=== PATIENT | female | born 1950 | race Caucasian/White ===

== ENCOUNTER 2020-10-02 15:49 | Emergency (ER) | payer OTHER, BC ==
[~2020-10-02] VITALS: Ht 162.6 cm; Wt 56.7 kg
[2020-10-02 21:04] VITALS: BP 116/68
[2020-10-02] MEDS ORDERED: NORVASC5 MG PO (21:44)
[2020-10-02] MEDS ORDERED: KEPPRA 500 MG500 MG PO (21:45)
[2020-10-02] MEDS ORDERED: LEVO-T100 MCG PO (21:45)
== END 2020-10-02 21:06 ==
LOC: ER 15:49
DX: R41.82 Altered mental status, unspecified (principal); Z79.899 Other long term (current) drug therapy; Z88.5 Allergy status to narcotic agent; Z20.828 Contact with and (suspected) exposure to other viral communicable diseases

== ENCOUNTER 2020-10-02 21:26 | Inpatient (IN) | payer OTHER, BC ==
[~2020-10-02] VITALS: Ht 165.1 cm; Wt 64.0 kg
[2020-10-02 21:30] VITALS: BP 140/80
[2020-10-02] MEDS ORDERED: NORVASC5 MG PO (21:44)
[2020-10-02] MEDS ORDERED: KEPPRA 500 MG500 MG PO (21:45)
[2020-10-02] MEDS ORDERED: LEVO-T100 MCG PO (21:45)
--- NOTE | 2020-10-03 00:54 | NUR ---
Patient admitted from [facility] where patient had been admitted inpatient from 09/25/20 to 10/02/20 due to "acute brain disorder". 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 While inpatient, patient had multiple tests and labs completed. Background history: Patient was living in [place] independently until approximately 3 weeks ago. Patient was playing golf, tennis, cards and completing all ADLs independently. Patient friends called son, Wicho ANT Churchill to report that patient was having increased confusion. Son, Wicho, brought patient to [facility] where he resides. Wicho took patient to [facility] due to generalized weakness and altered mental status progression. Patient has history of HTN, Hypothyroid and DJD. No history of dementia, depression or any psychiatric diagnoses. Wicho reports that patient has had "at least" a 40 pound weight loss over the last 1-2 months. Reports that she has poor intake. Foods that he was able to get her to eat over the last week have included scrambled eggs, blueberry muffin, jello, [place] juice and chocolate Ensure. Dietary consult placed as well as supplements TID. Patient had episodes of combative and impulsive behaviors while at [facility] and in [facility] ED. Patient was treated with Zyprexa 5mg IM while in ED which has been effective. No known falls over the last 6 months. Gait unsteady, poor balance observed. Patient also having expressive aphasia, speech mumbled and soft. Answers to name being called rarely. Disoriented x4. No s/s of pain or discomfort observed. Patient incontinent of bladder upon arrival to unit. Checked and changed q2 hours as well as turn q2. Fluids encouraged with each encounter. Patient becomes agitated and has declined fluids since arrival to unit. Appears that palliative care assessed patient while at [facility] and that "family is on board" to pursue hospice care upon d/c with private caregivers in son's home. Patient high fall risk, fall risk precautions in place. Son reports that patient tends to get "fidgety" when needing to use the bathroom and will occasionally use the bathroom if assisted there. Son also reports that patient has "tics" in her sleep. Small involuntary movements observed to bilateral upper extremities thus far this shift. Bruising present to left hand due to old IV placement. Patient impulsive and resistive to cares upon arrival. Gown changed, linens changed. Required max assist x2 for ADLs. Patient DNR, form in chart with DPOA signature as well as DPOA paperwork. Allergy: Codeine. Patient having periods of restlessness in her sleep but otherwise appears to be resting.
[2020-10-03 08:45] VITALS: BP 119/60
--- NOTE | 2020-10-03 19:21 | NUR ---
Alert and orientated X name only. At times tracks and follows, smiles and is able to make short coherent statements. At other times she is somulent. Did have several periods of rhythmic jerking of R arm, Dr. Molina aware, no orders. Requires feeding. Diet changed to mechanical altered chopped d/t at times slow to chew/swallow. Did take approximately 1500 ml in fluid today. Breath sounds clear. Reg HR auscultated. Color pink with brisk capillary refill and palpable peripheral pulses. Several spots of yellow urine on diaper X 2 approximately 5ml each, Dr. Molina notified, no orders. Wrapped hand through spokes of wheelchair early in day. Placed in gerichair. Bears wt most of time but requires 1-2 person transfer. Currently in bed without s/o distress.
[2020-10-03 19:45] VITALS: BP 132/60
--- NOTE | 2020-10-04 00:09 | NUR ---
PT CARE ASSUMED AT 1900. PT RESTING IN BED WITH EYES CLOSED. NO DISTRESS OBSERVED. MED PASS TIME PT IS STILL SLEEPY BUT EASILY AROUSABLE. PT TOOK MEDS WITH NO DIFFICULTY AND READJUSTED IN BED. PT CONFUSED AND DISORIENTED AND UNABLE TO STATE IF SHE IS IN PAIN. LUNGS CTA LALITO. HEART RHYTHM REGULAR WITH <2 CAP REFILL. BOWEL SOUNDS PRESENT OVER SOFT ROUNDED ABDOMEN. SKIN CDI. WILL CTM.
--- NOTE | 2020-10-04 01:38 | NUR ---
PT TOILETED BUT UNABLE TO VOID. NO SIGNS OF DISTRESS NOTED. BLADDERR SCANNED WITH A READING OF 324. AUT[employer] CENTER MANAGER AIRPORT CONTROL OPERATOR NOTIFIED. PT TO BE STRAIGHT CATHED IF >400ML. WILL CTM AND ACT ACCORDINGLY.
[2020-10-04 07:38] VITALS: BP 98/62
[2020-10-04 10:21] VITALS: BP 98/62
--- NOTE | 2020-10-04 12:54 | NUR ---
ACCEPTED CARE OF PATIENT FROM 7PM SHIFT. PT WITH MAX ASSIST OF 2 TO G/C TO EAT BREAKFAST. TRIES TO FEED SELF. TAKES HER MEDS CRUSHED IN APPLESAUCE WELL. NO TREMORS NOTED AT THIS TIME. RECIEVED ZYPREXA IM FOR INCREASED RESTLESSNESS. sON JUDSON CALLS TO CHECK ON PT. ENC TO CALL BACK TO CHECK ON HER.
--- NOTE | 2020-10-04 14:43 | NUR ---
QUANG contacted pts son Wicho (DPOA) to complete pt assessment. Wicho stated he spoke with hospital staff at [facility] who recommended he should look for pallitive care or hospice. Wicho reported if this is the recommendation he would like to look for a place near or in [place].
--- NOTE | 2020-10-04 16:32 | NUR ---
1600-Pt bladder distended and upon bladder scan,shows 500cc fluid in bladder. Pt is straight cath with a return of 600cc dark janiya concentrated urine. pt left in bed and within less 5minutes appears to be resting well.Dr Aviles here and discussed situation. she states she will address it.
[2020-10-04 18:56] VITALS: BP 106/67
--- NOTE | 2020-10-05 01:24 | NUR ---
Assumed care on 10/04/20 @ 19:15, seated in a moustapha chair in the day room, transferred x3 to bed and zhou in serted with sterile technique, 300cc output upon insertion. Procedure explained to patient, who had to have both hands held by staff during procedure, tolerated procedure well. Calmed after with reassurance, took meds crushed in applesauce cooperatively, with thin water. Trembling and head turning to the right and eyes turning to the right with jerkiness. Extremities trembling and jerking. Calm, however still awake @ 2200, second dose of Trazadone 50 provided along with Olanzapine 2.5mg for agitation, also Tylenol 650mg for general pain of 5/10, upon folllow up noted to be sleeping. Bed in low position, bed alarm set, zhou draining clear yellow urine to gravity. Will continue to monitor as per unit protocol for safety and comfort.
[2020-10-05 02:00] VITALS: BP 106/67
--- NOTE | 2020-10-05 06:36 | NUR ---
Slept 6.4 hours overnight.
[2020-10-05 08:00] VITALS: BP 163/126
--- NOTE | 2020-10-05 11:29 | NUR ---
QUANG and Dr. Price spoke to Wicho about pt who said he would like pt to go to a NH facility in [place] with hospice care. He wants her screened for hospice house placement with hospice. QUANG sent him a NH listing via Medicare.gov as a plan B in case she does not qualify for hospice house. QUANG team will continue to follow pt during her stay on this unit.
[2020-10-05 12:16] LABS: CALCIUM 10.1 mg/dL (8.5-10.1); CREATININE 1.4 mg/dL (0.6-1.0); POTASSIUM 4.1 mmol/L (3.5-5.1)
[2020-10-05 15:06] VITALS: BP 163/126
--- NOTE | 2020-10-05 15:17 | NUR ---
ASSUMED CARE AT 0700 TODAY. PT. IN BED, CATHETER HAD BEEN REMOVED AND LAYED BESIDE THE PT. BULB STILL INFLATED. PT. DRESSED AND GOTTEN INTO RECLINING CHAIR. PT. REMAINS VERT SHAKEY WHEN STANDING AND REQUIRES STAND BY ASSIST OF 2 STAFF. SHE WAS TAKEN TO THE DINING ROOM. ABOUT 0930 SHE STARTED JERKING VERY SEVERLY, BUCKING UP IN THE CHAIR. 3 STAFF CAME TO HER ASSISTANCE, CALMED HER DOWN. SHE RESTED FOR ABOUT ONE 1/2 HOURS. STAFF ABOUT THAT TIME NOTED HER TO BE STANDING FROM THE CHAIR. THE STAFF RUSHED TO HER AIDE. SHE WAS PLACED IN THE RECLINING CHAIR AGAIN AND A NELSON BELT WAS APPLIED. SHE DRANK 1/2 INSURE FOR BREAKFAST, AND HER EGGS. SHE ATE WELL FOR BREAKFAST. SHE REMAINS A TOTAL FEEDER. DR. DELEON WAS NOTIFIED OF THE CATHETER BEING REMOVED BY PATIENT. NO ORDER TO REPLACE RECEIVED.
[2020-10-05 19:35] VITALS: BP 117/63
[2020-10-05 20:30] VITALS: BP 117/63
--- NOTE | 2020-10-06 00:05 | NUR ---
PATIENT WAS UP IN JOCELIN CHAIR RECLINING IN DAYROOM WHEN THIS NURSE ASSUMED PATIENT CARE AT 1915. PATIENT WAS CALM, BUT BODY WAS SLOUCHED AND SHE WOULD TENSE UP QUICKLY WHEN I SPOKE WITH HER. UNABLE TO ASSESS ORIENTATION BUT SHE DOES SEEM TO ACKNOWLEGE ME WHEN I SPEAK HER NAME BY LOOKING MY DIRECTION. PATIENT AT ONE POINT WAS ABLE TO COMMUNICATE THAT SHE NEEDED TO VOID. PATIENT WAS INCONTINENT OF URINE AND CLEANED AND CHANGED AT THAT POINT. PATIENT ON HONEY THICKENED FLUIDS. SHE TOOK HER MEDS CRUSHED IN YOGURT. TONIGHT SHE SEEMS TO HAVE A DIFFICULT TIME SWALLOWING. SHE WAS ABLE TO AFTER A MINUTE OR SO AND WAS LIKE SHE WAS TRYING TO REMEMBER HOW. PATIENT DOES HAVE PERIODIC JERKING MOVEMENTS ALMOST IF IN SEIZURES AND HEAD AND EYES TURN TO LEFT AND LOOKS UPTO CEILING. SHE MOANS AT TIMES. TRAZADONE AND TYLENOL GIVEN AT HS TO HELP WITH COMFORT AND SLEEP. ALL 4 SIDERAILS UP FOR SAFETY AND BED IN LOW POSITION AND BED ALARM IS ON. PATIENT IS SLEEPING COMFORTABLY AND SOUNDLY AT THIS TIME. ROUTINE ROUNDS TO ASSESS SAFETY AND STATUS OF PATIENT.
--- NOTE | 2020-10-06 05:27 | NUR ---
PATIENT WAS STIRRING IN BED. GOT PATIENT UP TO BSC. PATIENT SAT ON BSC AND DRANK SOME HONEY THICK WATER. PATIENT UNABLE TO VOID. PATIENT PLACED BACK IN BED AND BLADDER SCAN READING WAS 131ML. PATIENT POSITIONED COMFORTABLY. SIDERAILS UP X 4 BED IN LOW POSITION AND BED ALARM ON. PATIENT RESTING WITH EYES CLOSED.
--- NOTE | 2020-10-06 06:45 | NUR ---
PATIENT HAD JUST ONE EPISODE OF SPASMODIC JERKING DURING NIGHT THAT CALMED WHEN CONSOLED. LASTED ABOUT 3 MINUTES. PATIENT IS HAPPY AND APPEARS MORE ALERT THIS MORNING. SHE IS ATTEMPTING TO JOKE WITH US BUT NOT UNDERSTANDABLE AND LAUGHING AT APPROPRIATE TIMES. PATIENT APPEARS MORE RELAXED AND BRIGHT EYED. PATIENT WAS GIVEN A WARM WET WASH CLOTH AND WASHED HER FACE WITH IT THIS MORNING. PATIENT UP IN JOCELIN CHAIR AND TO DINING ROOM. PATIENT SLEPT 7.0 HOURS LAST NIGHT. CHAIR ALARM IN PLACE AND WORKING.
[2020-10-06 07:42] VITALS: BP 143/84
[2020-10-06 07:47] VITALS: BP 110/55
--- NOTE | 2020-10-06 14:28 | NUR ---
UP IN GERICHAIR IN RECLINING POSITION MAJORITY OF SHIFT, WILL AT TIMES TURN EYES IN DIRECTION OF THIS DOG TRAINER WHEN SPEAKING WITH HER BUT DOES NOT FOLLOW VERBAL COMMANDS AND OFFERS NO VERBAL RESPONSES. PERIODIC EPISODES OF SPASTIC TYPE JERKING THIS SHIFT-MOSTLY WHEN APPROACHED BY STAFF-LOOKING AT CEILING AND REACHING UP IF TO GRAB SOMETHING AND BEGINS TO HAVE RAPID INTENSE JERKING OF UPPER AND LOWER EXTREMETIES. DID TAKE MEDICATIONS CRUSHED WITH YOGURT AND ATE APPROX 50 PERCENT OF LUNCH WHEN FED BY NURSING STAFF.
--- NOTE | 2020-10-06 15:10 | NUR ---
QUANG was notified by nursing that Hospice did assessment with pt's nurse hours ago and no decision has been made. QUANG contacted Sobia with Hospice and was told she will call QUANG back. SW team will continue to follow pt during her stay on this unit.
--- NOTE | 2020-10-06 17:30 | NUR ---
INCONTINENT OF URINE X2 TODAY-INCONTINENT CARE PROVIED AND BARRIER CREAM APPLIED-SKIN APPEARS INTACT
[2020-10-06 19:15] VITALS: BP 130/97
--- NOTE | 2020-10-07 02:22 | NUR ---
10-06-20 CARE TRANSFERRED 1899 OBSERVED PT SITTING IN [facility] IN DAY ROOM, PT WAS WAVING ARMS AROUND. 1939 PT AWAKE WILL TURN HEAD TOWARDS THIS WINDOW AIR CONDITIONER INSTALLER WHEN SPEAKING HER NAME, BUT HAS BEEN NONVERBAL. PT VSS, RR EVEN AND NONLABORED ON RA, PT APPEARS RESTLESS, WITH GROSS TREMORS IN UE. NO SI/HI BEHAVIORS OBSERVED. DURING MEDICATION ADMIN PT HAD NO DIFFICULTIES WITH CRUSHED MEDICATION IN APPLESAUCE AND PT ATE 100% OF APPLESAUCE CUP FED BY WINDOW AIR CONDITIONER INSTALLER. LATER ASSISTED PT BED AND NOTED A HEAVY BRIEF WITH YELLOW URINE, RK CARE GIVEN, SOAP AND WATER THEN BARRIER CREAM APPLIED. PT WAS POSITION IN BED FOR COMFORT. HCP Anne-Marie MONTANO NP CONSULTED ABOUT PALLIATIVE CARE/HOSPICE, NO CHANGES AT THIS TIME, BUT WILL GIVE REPORT TO ONCOMING RN. ZERO S/S OF ACUTE DISTRESS NOTED, PT WILL CONTINUE TO BE MONITOR PER SB.
--- NOTE | 2020-10-07 09:19 | NUR ---
QUANG received notice from Jayshree with [facility] that pt i snot yet appropiate for hospice house, but they are will to do in home care. QUANG provided an update on the plan b which is skilled nursing placement with hospice care. Jayshree agreed to that. QUANG team will continue to follow pt during her stay on this unit.
[2020-10-07 11:16] VITALS: BP 118/65
--- NOTE | 2020-10-07 20:06 | NUR ---
Pt. sleeping soundly this AM. Breath sounds clear t/o, bilaterally equal. Reg HR auscultated. Color pink with brisk capillary refill and palpable peripheral pulses. No edema noted. Brief dry. Active bowel sounds over soft, flat abdomen. Pt able to bear wt when stood and transferred to moustapha chair and brought to dining room. Son Melquiades called for update asked to call him later in AM. Spoke to primary DPOA Wicho to obtain Melquiades's number and gave update to both sons. Both expressed desire for pt to be made comfortable and be moved eamon to place where they could visit to spend time with their Mom. Melquiades requested for her to be given at least Tylenol because he was concerned she might be having pain and not be able to express it. Msg given to lithopone charger to address in team mtg. Pt took AM meds crushed in applesauce without diff. Much more alert mid AM with some periods of rythmic involuntary movement with R arm and turned to R with upward gaze. Pupils remained equal about 2mm. Ate approximately 80% of lunch and drank thickened fluids without diff when being fed. Placed in bed after lunch where she was slightly restless, ativan given with good results. Approximately 10ml of yellow liquid on brief, bladder scan done-->320ml. Dr. Price aware, will consider straight cath if >500ml. Pt. sleeping without s/o distress until approximately 1700 when she was again placed in moustapha chair and fed dinner. Brief dry at that time.
[2020-10-07 20:45] VITALS: BP 114/64
--- NOTE | 2020-10-08 03:47 | NUR ---
10-07-20 CARE TRANSFERRED 1900 OBSERVED PT SITTING IN DAY ROOM IN [facility] WITH LAP NELSON IN PLACE. 2044 PT WILL TURN HEAD WHEN YOU SPEAK HER NAME, BUT PT IS MOSTLY NONVERBAL. PT VS B/P 114/64, P100, R 18, T 97.0 94%02sAT RA RR EVEN AND NONLABORED. PT HAD NO DIFFICULTIES WITH CRUSHED MEDS IN JAM, PT ATE 10% OF ICE CREAM CUP. PT WAS ASSISTED INTO BED AND BRIEF WAS DRY, PT WAS GIVEN APPROXIMATELY 140ML OF HONEYTHICK ICE TEA. 10-08-20 APPROXIMATELY 0120 PT BLADDER SCANNED AND SCANNER SHOWED 314ML IN BLADDER. ZERO S/S OF ACUTE DISTRESS, PT WILL CONTINUE TO BE MONITOR
[2020-10-08 09:27] VITALS: BP 109/70
[2020-10-08 10:45] VITALS: BP 109/70
--- NOTE | 2020-10-08 14:09 | NUR ---
1400 RESUMMED CARE FROM OVERNIGHT SHIFT THIS AM,PATIENT IN ROOM ASLEEP. PATIENT TOOK MEDICATION CRUSHED IN YOGART THEN WENT BACK TO SLEEP. PATIENTS ABDOMEN SOFT FLAT BOWEL SOUNDS PRESENT LUNGS CLEAR. PATIENT IS NOT ABLE TO TELL YOU ABOUT SI/HI/AH/VH AT PRESENT. PATIENT HAD COVID TEST DONE AT 0800 THIS AM. PAT[facility], PATIENTS COVID IS NEGATIVE. THIS PLACEMENT WILL LOOK FOR HOSPICE FOR PATIENT WILL CONTINUE CONTINUE TO ENCOURAGE PATENT TO EAT AND DRINK.
[2020-10-08 20:14] VITALS: BP 140/72
--- NOTE | 2020-10-09 05:00 | NUR ---
Assumed care of pt @ 1900. Pt calm et cooperative this shift. Took medications crushed in yogurt without difficulty. Ambulation not observed this shift as patient remained bedfast. VSWNL. Health assessment with no abnormalities other than previously noted. Unable to assess SI/HI/AVH due to cognitive deficits but pt does not demonstrate any signs or symptoms of acute emotional distress at present time. Isolated in room most of shift. Currently resting in bed with eyes closed. Will continue to monitor per unit protocol.
[2020-10-09 08:52] VITALS: BP 131/97
--- NOTE | 2020-10-09 09:35 | NUR ---
ACCEPTED CARE OF PT FROM 7P-TO -7A SHIFT. PT IS UP IN G/C IN DINING ROOM. EYES CLOSED. AROUSES TO EAT BREAKFAST IS FED BY STAFF EATS NEARLY 50% AND TAKES MEDS CRUSHED IN APPLESAUCE. PT HAS UPPER BODY TREMORS WHEN AWAKE AND LOOKS AT THIS STAFF. IS NON VERBAL THIS AM. DR DELEON HERE TO SEE PT. PT AM CARE GIVEN. PREPARE FOR [facility] LATER THIS MORNING.
[2020-10-09] MEDS ORDERED: AMLODIPINE BESY10 MG PO (09:41)
[2020-10-09] MEDS ORDERED: LEVO-T100 MCG PO (09:42)
[2020-10-09] MEDS ORDERED: KEPPRA 500 MG500 MG PO (09:42)
[2020-10-09 09:45] VITALS: BP 131/97
--- NOTE | 2020-10-09 10:21 | NUR ---
SW contacted [employer] for transportation. Patient will discharge 12pm.
--- NOTE | 2020-10-09 11:53 | NUR ---
QUANG faxed discharge information to [facility]. insurance clerk faxed information to [facility]. QUANG contacted [employer] for transportation. [employer] [facility] will arrive at 1200pm.
--- NOTE | 2020-10-09 12:12 | NUR ---
1200 PT IS TRANSFERRED TO TRANSPORT CART TO DC TO [facility] AFTER REPORT CALLED TO STAFF AT THE [facility].SON JUDSON CALLED AND INFORMED HIM OF PT TRANSFER.
== END 2020-10-09 12:14 | DRG 56 ==
LOC: SBH 21:26
PROVIDERS: ADMIT Psychiatry & Neurology Psychiatry; ATTEND Psychiatry & Neurology Psychiatry
DX: A81.00 Creutzfeldt-Jakob disease, unspecified (principal); F01.51 Vascular dementia, unspecified severity, with behavioral disturbance; E43 Unspecified severe protein-calorie malnutrition; I10 Essential (primary) hypertension; E03.9 Hypothyroidism, unspecified; M19.90 Unspecified osteoarthritis, unspecified site; Z20.828 Contact with and (suspected) exposure to other viral communicable diseases; G40.909 Epilepsy, unspecified, not intractable, without status epilepticus; Z88.6 Allergy status to analgesic agent; Z79.899 Other long term (current) drug therapy
CPT/HCPCS: 10880